=== PATIENT | male | born 1950 | race Caucasian/White ===

== ENCOUNTER → 2022-07-12 | Outpatient (CLI) | payer MEDICARE, OTHER ==
[~2022-07-12] MED LIST: 'XANAX0.5 MG PO; ACID REDUCER10 MG PO; ALLOPURINOL100 MG PO; ALPRAZOLAM0.25 M2 PO; AMIODARONE HYD200 MG PO; ATENOLOL-CHLOR1 EAC1 PO; ATENOLOL50 M1 PO; ATORVASTATIN CA40 M1 PO; CLARITIN10 MG PO; GABAPENTIN100 M2 PO; GABAPENTIN600 MG PO; HEPARIN IJ; Ipratropium Brom3 ML NEB; LASIX20 MG PO; LEVOTHYROXINE50 MC1 PO; LEXAPRO10 MG PO; LOPRESSOR25 MG PO; PLAVIX75 M1 PO; PRAVASTATIN SOD80 MG PO; ROSUVASTATIN CA40 MG PO; [UNRECOGNIZED DRUG - OTHER] IJ
== END | disposition home or self-care (01) ==
LOC: LAB 02:02 → CT 14:00 → LAB 14:00
PROVIDERS: ATTEND Internal Medicine Infectious Disease
DX: N20.0 Calculus of kidney (principal); K80.20 Calculus of gallbladder without cholecystitis without obstruction; K76.9 Liver disease, unspecified

== ENCOUNTER → 2022-08-22 | Outpatient (CLI) | payer MEDICARE, OTHER | END | disposition home or self-care (01) | LOC: CT 01:24 | PROVIDERS: ATTEND Internal Medicine Infectious Disease | DX: K76.9 Liver disease, unspecified (principal); N20.0 Calculus of kidney ==